=== PATIENT | male | born 1960 | race Caucasian/White ===

== ENCOUNTER 2024-12-15 23:15 | Emergency (ER) | payer OTHER, SELFPAY ==
[2024-12-15 23:53] VITALS: BP 135/74; PULSE 66; TEMP 36.7; O2SAT 97; BMI 34.6
--- NOTE | 2024-12-16 00:27 | ED_ITS ---
HPI HPI - Extremity Injury (Lower) General Chief Complaint: Extremity Problem, Nontraumatic Stated Complaint: LOWER EXTREMITY PAIN Time Seen by Provider: 12/16/24 00:22 Source: patient Mode of arrival: walk-in Limitations: no limitations History of Present Illness HPI Narrative: past history of bipolar disease and CAD. had stent placed one year ago and was on Brilinta which was recently d/veronica. Now presents complaining of swelling and pain right leg. right knee pain last week and now has pain and swelling of the right leg. left leg swollen some to. States he is short of breath but he has been short of breath before. No chest pain but right neck is sore Related Data Allergies Allergy/AdvReac Type Severity Reaction Status Date / Time bupropion (From Wellbutrin) Allergy Unknown Unknown Verified 12/16/24 00:57 Opioid HPI Opioid Management Most Recent Pain and Opioid Data: Last Pain Scale 9 12/15/24, 23:53 Review of Systems ROS Status of ROS 10 or more systems reviewed and unremark able except as noted in history and below PFSH PFSH Social History Little interest or pleasure in doing things: several days Feeling down, depressed, or hopeless: several days Exam Constitutional Vital Signs, click to edit/add: Last Vital Signs Temp 98.1 F 12/15/24 23:53 Pulse 66 12/15/24 23:53 Resp 18 12/15/24 23:53 BP 135/74 12/15/24 23:53 Pulse Ox 97 12/15/24 23:53 O2 Del Method Room Air 12/15/24 23:53 Common normals: no apparent distress, average body habitus, oriented x3, no limitations, healthy appearing, alert and well nourished [facility] Common normals: normocephalic and head/scalp atraumatic Eye Common normals: EOMs intact bilaterally Respiratory Common normals: normal respiratory effort, no retractions, no use of accessory muscles and clear to auscultation bilaterally Cardio Common normals: regular rate, regular rhythm, S1 normal heart sound and S2 normal heart sound GI Common normals: Normal to inspection, nondistended, normoactive bowel sounds present, soft to palpation and non-tender Extremity Other: right leg 1+ edema left leg trace-1+ right popliteal and calf tenderness Neuro Common normals: oriented x3, CN's II-XII intact bilaterally, moves all extremities and no focal motor deficits Psych Appearance: grossly normal Course Vital Signs Vital signs: Vital Signs Temperature 98.1 F 12/15/24 23:53 Pulse Rate 66 12/15/24 23:53 Respiratory Rate 18 12/15/24 23:53 Blood Pressure 135/74 12/15/24 23:53 Pulse Oximetry 97 12/15/24 23:53 Oxygen Delivery Method Room Air 12/15/24 23:53 Temperature 98.1 F 12/15/24 23:53 Pulse Rate 66 12/15/24 23:53 Respiratory Rate 18 12/15/24 23:53 Blood Pressure 135/74 12/15/24 23:53 Pulse Oximetry 97 12/15/24 23:53 Oxygen Delivery Method Room Air 12/15/24 23:53 MDM - Extremity Injury (Lower) MDM Narrative Medical decision making narrative: patient presents with right leg swelling . started as right knee pain. Has popliteal and right calf tenderness. D-dimer neg. serial troponin neg. also mild swelling LLE. unclear as to cause of his edema but suspect an inflammatory component as his knee is painful. plan short course of prednisone and have him follow up with his doctor for recheck Discharge Plan Discharge Chief Complaint: Extremity Problem, Nontraumatic Clinical Impression: Arthralgia of knee, right, Edema Patient Disposition: Home, Self-Care Print Language: [place]er Instructions: Leg Edema (ED), Arthralgia (ED) Additional Instructions: follow up with your doctor in 2-3 days for recheck Referrals: Physician,Non-Staff, MD [Primary Care Provider] - 1 week
--- NOTE | 2024-12-16 00:31 | XR_ITS ---
The [place] [id number] Patient Name: RAQUEL MARTINEZ MRN: [id number] date: 1960 Sex: M Assigned Patient Location: ER Current Patient Location: Accession/Order Number: [id number] Exam Date: 12/16/2024 00:50 Report Date: 12/16/2024 08:01 At the request of: ROBERT SANCHEZ MD Procedure: XR chest 1V PORTABLE AP ERECT CHEST 0039 hours CLINICAL HISTORY: short of breath COMPARISON: 12/21/2019 The heart is within normal limits. There is no vascular congestion. No developing consolidation is seen. There is no effusion or pneumothorax. The osseous structures are intact. And degenerative changes present at the shoulders XR/XR chest 1V IMPRESSION: NO ACUTE FINDINGS Impression dictated by: Trina Whatley M.D. 12/16/2024 8:01 AM Dictation Location: [place] [id number] Electronically authenticated by: [id number] Y Date: 12/16/2024 08:01
--- NOTE | 2024-12-16 00:31 | ECG_ITS ---
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
[2024-12-16 01:01] LABS: Hematocrit 35.1 % (42.0-54.0); Hemoglobin 11.7 g/dL (14.0-18.0); Immature Granulocytes Abs Auto 0.04 10^3/uL (0.00-0.03); Immature Granulocytes Pct Auto 0.5 % (0.0-0.5); Lymphocytes Absolute Auto 1.6 10^3/uL (1.2-3.8); Mean Corpuscular HGB Conc 33.3 g/dL (29.9-35.2); Mean Corpuscular Hemoglobin 30.3 pg (25.9-34.0); Mean Corpuscular Volume 90.9 fL (80.0-94.0); Platelet Count 203 10^3/uL (150-450); Red Blood Count 3.86 10^6/uL (4.70-6.10); White Blood Count 8.5 10^3/uL (4.0-11.0)
[2024-12-16 01:26] LABS: Anion Gap 9.9; Blood Urea Nitrogen 18.0 mg/dL (7.0-18.0); Calcium 8.6 mg/dL (8.5-10.1); Carbon Dioxide 26.6 mmol/L (21.0-32.0); Chloride 107 mmol/L (98-107); Estimated GFR (African America >60 (>=60 mL/min/1.73m^2); Estimated GFR (Non-African Ame >60 (>=60 mL/min/1.73m^2); Glucose 103 mg/dL (74-106); NT Pro B Type Natriuretic Pept 261.0 pg/mL (<=900.0); Potassium 3.5 mmol/L (3.5-5.1); Sodium 140 mmol/L (136-145)
[2024-12-16 01:27] LABS: Uric Acid 6.8 mg/dL (3.5-7.2)
[2024-12-16] MEDS: PREDNISONE 20 MG TABLET 40 MG PO (03:43)
== END 2024-12-16 04:01 | disposition home or self-care (01) ==
PROVIDERS: Emergency Provider Internal Medicine
DX: M25.561 Pain in right knee (principal); R60.0 Localized edema; I25.10 Atherosclerotic heart disease of native coronary artery without angina pectoris; Z95.5 Presence of coronary angioplasty implant and graft; F31.9 Bipolar disorder, unspecified; R06.02 Shortness of breath
CPT/HCPCS: 36415; 71045; 80048; 83880; 84484; 84550; 85025; 85378; 93005; 99285; J7512